=== PATIENT | male | born 1955 | race Caucasian/White ===

== ENCOUNTER → 2022-07-21 16:01 | Outpatient (CLI) | payer MEDICARE, OTHER, SELFPAY ==
[2022-07-21 16:58] LABS: Influenza A - CEPHEID Flu A NEGATIVE (NEGATIVE); Influenza B - CEPHEID Flu B NEGATIVE (NEGATIVE); Respiratory Syncytial Virus Negative (Negative)
[2022-07-21 17:05] LABS: COVID-19 CEPHEID 4-PLEX PCR Negative (Negative)
== END ==
PROVIDERS: Visit Provider Physician Assistant
DX: J06.9 Acute upper respiratory infection, unspecified (principal)
CPT/HCPCS: 0241U

== ENCOUNTER → 2022-09-14 13:51 | Outpatient (CLI) | payer OTHER, SELFPAY ==
--- NOTE | 2022-09-14 | DI.RAD.S_ITS ---
PROCEDURE: XR CHEST 2V INDICATIONS: COPD TECHNIQUE: 2 views of the chest were acquired. COMPARISON: None. FINDINGS: Surgical changes and devices: None. Lungs and pleura: Lungs are clear. No pleural effusions or pneumothorax. Mediastinum: Mediastinal contours are normal. Heart size is normal. Bones and chest wall: No suspicious bony abnormalities. Soft tissues appear unremarkable. IMPRESSION: No acute cardiopulmonary disease. Dictated by: Tess Moss M.D. on 09/14/2022 at 16:36 Approved by: Tess Moss M.D. on 09/14/2022 at 16:37
--- NOTE | 2022-09-19 07:45 | PM.PFT.1 ---
Pulmonary Function Test Referral & Results Date Patient Seen: 09/14/22 Results: The spirometry demonstrates an FVC of 3.55 L which is 80% of predicted. The FEV1 was measured at 2.91 L which is 88% of predicted. The FEV1/FVC ratio was 82 which is 109% of predicted. Following the administration of bronchodilator there was no appreciable change. Interpretation: This study, which was done as forced spirometry only, demonstrates no notable abnormality
== END ==
PROVIDERS: Referring Provider Chiropractor; Visit Provider Chiropractor
DX: J44.9 Chronic obstructive pulmonary disease, unspecified (principal); Z87.891 Personal history of nicotine dependence
CPT/HCPCS: 71046; 94060